=== PATIENT | female | born 1985 | race Caucasian/White ===

== ENCOUNTER → 2018-08-08 14:52 | Outpatient (CLI) | payer MEDICAID, SELFPAY ==
[2018-08-08 14:31] VITALS: BMI 32.1
[2018-08-08 15:28] LABS: Thyroid Stim Hormone (TSH) 1.16 uIU/mL (0.358-3.74)
[2018-08-13 08:22] LABS: HPV APTIMA, High Risk Negative (Negative)
== END ==
PROVIDERS: Family Provider Internal Medicine; PCP Internal Medicine; Referring Provider Nurse Practitioner Women's Health; Visit Provider Nurse Practitioner Women's Health
DX: Z12.4 Encounter for screening for malignant neoplasm of cervix (principal); L65.9 Nonscarring hair loss, unspecified; R63.5 Abnormal weight gain
CPT/HCPCS: 36415; 84443; 87624; 88175; G0145

== ENCOUNTER → 2018-12-09 11:07 | Outpatient (CLI) | payer MEDICAID, SELFPAY ==
[2018-12-07 16:42] VITALS: BMI 31.9
[2018-12-09 13:11] LABS: AST(SGOT) 26 U/L (15-37); Alanine Aminotransfer ALT/SGPT 55 U/L (13-56); Albumin, Serum 3.9 g/dL (3.2-5.0); Alkaline Phosphatase 107 U/L (45-117); Anion Gap 8 (5-15); BUN 16 mg/dL (7-18); BUN/Creat Ratio 20.5 RATIO (10-20); Chloride 104 mmol/L (98-107); Cholesterol 178 mg/dL (200); Creatinine, Serum 0.78 mg/dL (0.55-1.02); EST Glomerular Filtration Rate 90 mL/min (>60); Est Glom Filt Rate - Afr Amer 109 mL/min (>60); Globulin 3.9 g/dL (2.2-4.2); Glucose 85 mg/dL (74-106); High Density Lipoprotein 41 mg/dL; Potassium 3.8 mmol/L (3.5-5.1); Protein, Total 7.8 g/dL (6.4-8.2); Sodium Level 140 mmol/L (136-145); T4 Free Direct 0.97 ng/dL (0.76-1.46); Triglycerides 109 mg/dL; Very Low Density Lipoprotein 22 mg/dL (5-40)
== END ==
PROVIDERS: Family Provider Internal Medicine; PCP Internal Medicine; Referring Provider Internal Medicine; Visit Provider Internal Medicine
DX: I10 Essential (primary) hypertension (principal)
CPT/HCPCS: 36415; 80053; 80061; 84439; 84443

== ENCOUNTER → 2019-03-12 14:04 | Outpatient (CLI) | payer MEDICAID, SELFPAY ==
[2019-03-12 13:33] VITALS: BMI 31.9
[2019-03-12 15:28] LABS: Anion Gap 6 (5-15); BUN 20 mg/dL (7-18); BUN/Creat Ratio 23.8 RATIO (10-20); Calcium,Total 8.8 mg/dL (8.5-10.1); Chloride 101 mmol/L (98-107); Creatinine, Serum 0.84 mg/dL (0.55-1.02); EST Glomerular Filtration Rate 82 mL/min (>60); Est Glom Filt Rate - Afr Amer 99 mL/min (>60); Glucose 91 mg/dL (74-106); Potassium 3.3 mmol/L (3.5-5.1); Sodium Level 138 mmol/L (136-145)
== END ==
PROVIDERS: Family Provider Internal Medicine; PCP Internal Medicine; Referring Provider Internal Medicine; Visit Provider Internal Medicine
DX: I10 Essential (primary) hypertension (principal)
CPT/HCPCS: 36415; 80048

== ENCOUNTER → 2020-05-31 09:21 | Outpatient (CLI) | payer MEDICAID, SELFPAY ==
[2020-05-28 17:04] VITALS: BMI 33.2
[2020-05-31 10:52] LABS: Absolute Lymphocyte Count 2.11 X10^3/uL (0.83-4.51); Absolute Neutrophil Count 4.5 X10^3/uL (2.0-7.7); Basophil# 0.02 X10^3/uL; Basophil% 0.3 % (0-1); Eosinophil# 0.08 X10^3/uL; Eosinophils% 1.1 % (0-5); Hematocrit 42.3 % (37-47); Hemoglobin 13.9 g/dL (12.0-15.0); Lymphocyte # 2.11 X10^3/ul (4.0); Lymphocyte % 29.2 % (19-41); Mean Corp Hgb Conc 32.9 g/dL (32-36); Mean Corpuscular Hgb 29.4 pg (27.0-32.0); Mean Corpuscular Volume 89.6 fL (81-99); Mean Platelet Vol. 12.2 fl (6.2-12.0); Monocyte# 0.51 X10^3/uL; Monocyte% 7.1 % (0-10); NRBC Flagged by Analyzer 0 % (0-5); Neutrophil # 4.48 X10^3/uL (2.7-7.7); Platelet Count 250 K/mm3 (150-450); RBC Distribution Width CV 11.9 % (11.6-14.6); RBC Distribution Width SD 39.3 fl (35.1-43.9); Red Blood Count 4.72 M/mm3 (4.2-5.4); White Blood Count 7.2 K/mm3 (4.4-11.0)
[2020-05-31 10:53] LABS: AST(SGOT) 29 U/L (15-37); Alanine Aminotransfer ALT/SGPT 74 U/L (13-56); Albumin, Serum 3.9 g/dL (3.2-5.0); Alkaline Phosphatase 90 U/L (45-117); Anion Gap 6 (5-15); BUN 18 mg/dL (7-18); BUN/Creat Ratio 22.5 RATIO (10-20); Chloride 103 mmol/L (98-107); Cholesterol 215 mg/dL (200); EST Glomerular Filtration Rate 87 mL/min (>60); Est Glom Filt Rate - Afr Amer 105 mL/min (>60); Globulin 4.1 g/dL (2.2-4.2); Glucose 94 mg/dL (74-106); High Density Lipoprotein 45 mg/dL; Potassium 3.9 mmol/L (3.5-5.1); Sodium Level 137 mmol/L (136-145); T4 Free Direct 0.93 ng/dL (0.76-1.46); Triglycerides 118 mg/dL; Very Low Density Lipoprotein 24 mg/dL (5-40)
== END ==
PROVIDERS: PCP Internal Medicine; Referring Provider Nurse Practitioner Family; Visit Provider Nurse Practitioner Family
DX: I10 Essential (primary) hypertension (principal)
CPT/HCPCS: 36415; 80053; 80061; 84439; 84443; 85025

== ENCOUNTER 2020-09-16 17:00 | Outpatient (RCR) | payer MEDICAID, SELFPAY ==
[2020-05-28 17:04] VITALS: BMI 33.2
== END 2020-09-17 23:59 ==
LOC: NS 17:00
PROVIDERS: PCP Internal Medicine; Visit Provider Nurse Practitioner Family
DX: Z71.3 Dietary counseling and surveillance (principal); E66.9 Obesity, unspecified; Z68.33 Body mass index [BMI] 33.0-33.9, adult
CPT/HCPCS: 97802; 97803

== ENCOUNTER 2020-10-07 16:51 | Outpatient (RCR) | payer MEDICAID, SELFPAY ==
[2020-05-28 17:04] VITALS: BMI 33.2
== END 2020-10-18 23:59 ==
LOC: NS 16:51
PROVIDERS: PCP Internal Medicine; Visit Provider Nurse Practitioner Family
DX: E66.9 Obesity, unspecified (principal); Z68.33 Body mass index [BMI] 33.0-33.9, adult
CPT/HCPCS: 97803

== ENCOUNTER 2021-04-07 16:29 | Outpatient (CLI) | payer MEDICAID, SELFPAY ==
[2021-04-07 16:33] LABS: Mucous, Urine 0 SEEN /hpf (<or=2+); Red Blood Cells-Urine 0 SEEN /hpf (0-5)
[2021-04-07 16:37] LABS: Color, Urine Yellow (Yellow); Glucose, Dipstick Normal (Normal); Ketone-Dipstick Negative (Negative); Leukocyte Esterase-Dipstick 500 /ul (Negative); Nitrite-Dipstick Negative (Negative); Occult Blood-Urine Negative /ul (Negative); Protein-Dipstick Negative (Negative); Specific Gravity, Urine 1.025 (1.002-1.030); Urine Bilirubin Dipstick Negative (Negative); Urine Clarity Sl. Cloudy (Clear); Urine Urobilinogen Normal (Normal)
[2021-04-07 16:43] LABS: White Blood Cells 25-50 SEEN /hpf (0-5)
[2021-04-07 16:44] LABS: Bacteria 1+ /hpf (None Seen); Squamous Epithelial Cells - UA 0-5 SEEN /hpf (5-10)
== END 2021-04-07 23:59 | disposition short-term general hospital (02) ==
LOC: LABSPEC 16:32
PROVIDERS: PCP Internal Medicine; Referring Provider Nurse Practitioner Family; Visit Provider Nurse Practitioner Family
DX: M54.9 Dorsalgia, unspecified (principal)
CPT/HCPCS: 81001; 87086; 87088

== ENCOUNTER 2021-04-16 15:31 | Outpatient (CLI) | payer MEDICAID, SELFPAY ==
[2021-04-16 16:48] LABS: Absolute Lymphocyte Count 2.39 X10^3/uL (0.83-4.51); Absolute Neutrophil Count 4.6 X10^3/uL (2.0-7.7); Basophil# 0.03 X10^3/uL; Basophil% 0.4 % (0-1); Eosinophil# 0.13 X10^3/uL; Eosinophils% 1.7 % (0-5); Hematocrit 39.7 % (37-47); Hemoglobin 13.4 g/dL (12.0-15.0); Lymphocyte # 2.39 X10^3/ul (0.83-4.51); Lymphocyte % 31.4 % (19-41); Mean Corp Hgb Conc 33.8 g/dL (32-36); Mean Corpuscular Hgb 29.5 pg (27.0-32.0); Mean Corpuscular Volume 87.4 fL (81-99); Mean Platelet Vol. 11.9 fl (6.2-12.0); Monocyte% 6.6 % (0-10); NRBC Flagged by Analyzer 0 % (0-5); Neutrophil # 4.55 X10^3/uL (2.7-7.7); Neutrophil % 59.6 % (47-70); Platelet Count 282 K/mm3 (150-450); RBC Distribution Width CV 11.9 % (11.6-14.6); RBC Distribution Width SD 38.3 fl (35.1-43.9); Red Blood Count 4.54 M/mm3 (4.2-5.4); White Blood Count 7.6 K/mm3 (4.4-11.0)
[2021-04-16 16:57] LABS: ALB/GLOB Ratio 0.9 RATIO (0.9-2.4); AST(SGOT) 30 U/L (15-37); Alanine Aminotransfer ALT/SGPT 72 U/L (13-56); Albumin, Serum 3.9 g/dL (3.2-5.0); Alkaline Phosphatase 103 U/L (45-117); Anion Gap 8 (5-15); BUN 22 mg/dL (7-18); BUN/Creat Ratio 26.3 RATIO (10-20); Calcium,Total 9.1 mg/dL (8.5-10.1); Chloride 102 mmol/L (98-107); Cholesterol 203 mg/dL (200); Creatinine, Serum 0.84 mg/dL (0.55-1.02); EST Glomerular Filtration Rate 82 mL/min (>60); Est Glom Filt Rate - Afr Amer 99 mL/min (>60); Globulin 4.2 g/dL (2.2-4.2); Glucose 84 mg/dL (74-106); High Density Lipoprotein 39 mg/dL; Potassium 3.7 mmol/L (3.5-5.1); Protein, Total 8.1 g/dL (6.4-8.2); Sodium Level 138 mmol/L (136-145); Triglycerides 214 mg/dL; Very Low Density Lipoprotein 43 mg/dL (5-40)
== END 2021-04-16 23:59 | disposition short-term general hospital (02) ==
LOC: BIMLAB 15:32
PROVIDERS: PCP Internal Medicine; Referring Provider Internal Medicine; Visit Provider Internal Medicine
DX: I10 Essential (primary) hypertension (principal)
CPT/HCPCS: 36415; 80053; 80061; 85025